=== PATIENT | male | born 1955 | race African-American/Black ===

== ENCOUNTER 2016-08-14 12:19 | Inpatient (IN) | payer OTHER ==
[~2016-08-14] VITALS: Ht 188 cm; Wt 71.2 kg
--- NOTE | ~2016-08-14 | P ---
[facility] [place] [address] PROCEDURE REPORT Name: CHRIS AGRAWAL Room #: 418-P [facility] IN ..#: [id number] Admission: 08/14/16 Attend Phys: Kali Domingo MD Discharge: Date of : 59 Report #: [id number] THIS REPORT FOR: //name// CC: Missael Valderrama DO Kali Domingo MD DATE OF SERVICE: 08/15/2016 This is a patient of Dr. Domingo. 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 He was brought to the operating room now for EGD and removal of the old PEG tube via the mouth using endoscopy. DESCRIPTION OF PROCEDURE: Informed consent for this procedure was obtained from the patient's guardian for EGD, the risks of bleeding, perforation, infection, complications of sedation and the possibility that I could miss something have been explained to the guardian and they have indicated their consent by signing. Ketamine and propofol were slowly titrated before and during this procedure for the patient comfort by the anesthesia service. The Revolutn upper videoscope was introduced through the upper esophageal sphincter and advanced under direct visualization to the distal stomach where the old PEG tube bumper is seen in the antrum and snared the old PEG tube bumper and tried to collapse it with a snare and we might be able to pull it through what appeared to be a very narrow esophagus on the way in at the level of the tracheostomy, but I could never collapse the bumper far enough that I was not concerned about the risk of an esophageal tear or perforation or significant bleeding at the level of the tracheostomy in the esophagus, so the procedure was terminated and the scope was withdrawn. The visualized stomach and esophagus appeared normal. I saw no evidence of any hiatal hernia. Once again the proximal esophagus at the level of the trachea is extraordinarily narrow. Though the scope will go through it fairly easily, I do not think that that bumper from the PEG tube would make it through without a significant risk of injury. Scope was withdrawn. The patient went to the recovery area in stable condition. He tolerated the procedure well. We replace the external PEG tube bumper and a port opening on the old tube. I would recommend we hold the Plavix for now for 4 days and bring him back as an outpatient to pull the PEG through the anterior abdominal wall and replace it with a balloon PEG that can be removed and inserted more easily. [address] [address] PROCEDURE REPORT Name: NGHIACHRIS Room #: 418-P [facility] IN .R.#: [id number] Admission: 08/14/16 Attend Phys: Kali Domingo MD Discharge: Date of : 59 Report #: [id number] Thank you very much once again for allowing me to participate in his care, Dr. Domingo. By: [id number] 0120 Martha Rascon DO /nt
[2016-08-14] MEDS ORDERED: MAPAP160 MG/51 PO (13:17)
[2016-08-14] MEDS ORDERED: ROBAFEN100 MG/5 M PO (13:20)
[2016-08-14] MEDS ORDERED: PLAVIX 75 MG TA75 M1 PER TUBE (13:21)
[2016-08-14] MEDS ORDERED: COZAAR 50 MG TA50 M2 PER TUBE (13:22)
[2016-08-14 15:51] LABS: BASOPHILS 0.5 % (0.0-2.0); EOSINOPHILS 2.6 % (0.0-3.0); HEMATOCRIT 45.5 % (42.0-52.0); HEMOGLOBIN 15.2 gm/dL (14.0-18.0); LYMPHOCYTES 35.6 % (24.0-44.0); MCH 30.3 pg (26.0-34.0); MCHC 33.4 g/dL (28.0-37.0); MCV 90.6 fL (80.0-100.0); MONOCYTES 7.9 % (1.0-8.0); POLYS 53.4 % (36.0-66.0); RBC 5.02 mil/uL (4.50-6.00); RDW 14.8 % (10.5-14.5); WBC 5.6 thou/uL (4.0-11.0)
[2016-08-14 15:53] LABS: MANUAL DIFF NO
[2016-08-14 15:54] LABS: CALCIUM 9.6 mg/dL (8.5-10.1); CREATININE 0.8 mg/dL (0.6-1.3); MAGNESIUM 2.1 mg/dL (1.8-2.4); POTASSIUM 3.8 mmol/L (3.5-5.1)
[2016-08-14 16:13] LABS: ANISOCYTOSIS SLIGHT; PLATELET COUNT 82 thou/uL (150-400)
[2016-08-15 06:08] LABS: ABSOLUTE NEUTROPHILS 4.2 thou/uL (1.4-8.2); BASOPHILS 0.3 % (0.0-2.0); EOSINOPHILS 3.4 % (0.0-3.0); HEMATOCRIT 42.6 % (42.0-52.0); HEMOGLOBIN 14.5 gm/dL (14.0-18.0); LYMPHOCYTES 37.7 % (24.0-44.0); MCH 30.9 pg (26.0-34.0); MCHC 34.1 g/dL (28.0-37.0); MCV 90.6 fL (80.0-100.0); MONOCYTES 7.6 % (1.0-8.0); PLATELET COUNT 78 thou/uL (150-400); RDW 14.7 % (10.5-14.5); WBC 8.2 thou/uL (4.0-11.0)
[2016-08-15 06:20] LABS: MANUAL DIFF NO
[2016-08-15 06:35] LABS: ALBUMIN 3.3 g/dL (3.4-5.0); CALCIUM 9.1 mg/dL (8.5-10.1); CREATININE 0.7 mg/dL (0.6-1.3); TOTAL BILIRUBIN 0.7 mg/dL (<0.1-1.0); TOTAL PROTEIN 7.5 g/dL (6.4-8.2)
== END 2016-08-16 20:00 | DRG 393 ==
LOC: ER 12:19 → EROBS 13:23 → 4E 13:23
PROVIDERS: Internal Medicine; Nurse Practitioner
DX: K94.23 Gastrostomy malfunction (principal); J96.90 Respiratory failure, unspecified, unspecified whether with hypoxia or hypercapnia; J44.9 Chronic obstructive pulmonary disease, unspecified; R13.10 Dysphagia, unspecified; I10 Essential (primary) hypertension; R56.9 Unspecified convulsions; R53.81 Other malaise; I69.320 Aphasia following cerebral infarction; Z87.440 Personal history of urinary (tract) infections; Z93.0 Tracheostomy status; Z28.89 Immunization not carried out for other reason
CPT/HCPCS: 10783; 62110; 62900; 70005

== ENCOUNTER 2016-10-02 00:22 | Inpatient (IN) | payer OTHER ==
[2016-10-02] VITALS (8 sets, daily range): BP systolic 89–142; BP diastolic 58–101
[~2016-10-02] VITALS: Ht 188 cm; Wt 68.6 kg
--- NOTE | ~2016-10-02 | EKG ---
[address] [address] ELECTROCARDIOGRAM REPORT Name: CHRIS AGRAWAL Room #: 446-P ADM IN M.R.#: [id number] Admission: 10/02/16 Attend Phys: Gael Melo MD Discharge: Date of : 59 Report #: [id number] THIS REPORT FOR: //name// [facility] ED Test Date: 2016-10-02 Test Time: 00:57:07 Pat Name: CHRIS AGRAWAL Department: Room: 446 Gender: M Medical Office Technologist: darrell : 1955 Requested By: Ethan Metzger Order Number: [id number] MD: Johnny Solares Measurements Intervals Maceo Rate: 109 P: 72 TN: 152 QRS: 56 QRSD: 74 T: 66 QT: 320 QTc: 431 Interpretive Statements Sinus tachycardia Baseline wander in lead(s) II,aVR Compared to ECG 05/08/2005 12:59:51 No significant changes Electronically Signed On 10-02-2016 8:03:35 CDT by Johnny Solares [email or web address] <ELECTRONICALLY SIGNED> By: Johnny Solares MD, [facility] 10/02/16 0803 0057 0057 Johnny Solares MD, [facility] /EPI
--- NOTE | ~2016-10-02 | H ---
[facility] [place] [address] HISTORY AND PHYSICAL Name: AGRAWALCHRIS Brad Room #: 446-P [facility] IN .R.#: [id number] Admission: 10/02/16 Attend Phys: Constance Nixon Discharge: 10/04/16 Date of : 59 Report #: [id number] THIS REPORT FOR: //name// CC: Constance Valderrama DATE OF SERVICE: 10/02/2016 ATTENDING PHYSICIAN: Gael Melo MD. PRIMARY CARE PHYSICIAN: Missael Valderrama DO. CHIEF COMPLAINT: Left facial droop. HISTORY OF PRESENT ILLNESS: The patient is a 61-year-old -[place] male who is currently at [facility]. Apparently, around 3:00 p.m. yesterday was noted to have left-sided facial droop. He does have a history of stroke, but this was new. They did not immediately send him to the ER because they were waiting on labs to be drawn. Eventually, EMS was called. The patient was reported to be less active during the day. There really is not much other information available except that when EMS arrived, his blood sugar was 460. The patient has a history of a large stroke and is aphasic. He can nod his head yes and no to some questions. He was previously here in August of this year for PEG tube replacement. He does have chronic UTIs, the last of which grew Proteus. In the ER, his NIH score was 9. He was given some fluids and he seemed to perk up. There really was not any facial droop noted on arrival to the ER. He does have a trach and is chronically on oxygen. PAST MEDICAL HISTORY: Hypertension, chronic respiratory failure, hyperlipidemia, COPD, seizures, large stroke with aphasia. PAST SURGICAL HISTORY: PEG tube placement, tracheostomy. ALLERGIES: None. HOME MEDICATIONS: Eliquis 5 mg b.i.d., Plavix 75 mg daily, Lipitor 10 mg at bedtime, losartan 100 mg daily, Tylenol p.r.n., Keppra 1000 mg t.i.d., Vimpat 200 mg b.i.d., potassium 20 mEq daily, Maxzide 37.5/25 one tab daily, guaifenesin 20 mL q. 8 hours p.r.n., Peridex p.r.n., Maalox p.r.n., Colace 100 mg p.o. daily, scopolamine patch 1 patch transdermally daily, NovoLog insulin per sliding scale, Levemir insulin 10 units at bedtime, and multivitamin 1 tab p.o. daily. SOCIAL HISTORY: The patient resides at [facility]. It looks like he is in a rehab facility there. I do not know his living situation prior to rehab. [address] [address] HISTORY AND PHYSICAL Name: AGRAWALCHRIS Room #: 446-P [facility] IN ..#: [id number] Admission: 10/02/16 Attend Phys: Constance Nixon Discharge: 10/04/16 Date of : 59 Report #: [id number] Apparently, he has some alcohol abuse in the past. I do not know if he has been a previous smoker or did any recreational drugs. FAMILY HISTORY: Unobtainable due to altered mental status. PHYSICAL EXAMINATION: GENERAL: The patient is an alert, but nonverbal male in no acute distress. VITAL SIGNS: Temperature is 37.8, max heart rate 109, respirations 19, blood pressure is 136/101, oxygen is 99% on room trach shield. HEENT: PERRLA. Sclerae is nonicteric. Oral mucosa is pink and dry. His lips are chapped. NECK: He does have a trach in place. There is some yellow to singleton sputum noted around his trach. RESPIRATORY: Breath sounds are coarse bilaterally. No wheezing. ABDOMEN: Flat, nontender, nondistended with positive bowel sounds. He does have a PEG tube in place. GENITOURINARY: A Jaime catheter is draining clear yellow urine. VASCULAR: No edema noted. Pedal pulses are 2+. NEUROLOGIC: The patient is alert, but aphasic. He does nod yes and no to a few questions. He is unable to follow any commands. He does have generalized weakness throughout. He does have contractures of bilateral upper and lower extremities. LABORATORY DATA AND DIAGNOSTICS: WBC is 11.9, hemoglobin 16.1, platelets 75. Sodium 150, potassium is 3.8, BUN 44, creatinine 1.2. Glucose 464, lactate 1.1. LFTs showed AST of 34, ALT 68, alkaline phosphatase 91. Troponins negative. ABG: pH is 7.46, pCO2 of 46.9, pO2 of 102.9 and bicarbonate is 32.4 with a lactate of 1.59. UA showed no leukocyte esterase or nitrites, but there were few wbc's and many bacteria and glucose was 2+. CT of the head shows extensive atrophy and chronic microvascular disease with old bilateral white matter infarcts. There is no acute hemorrhage or infarct. There is no mass effect or midline shift. There is mild mucosal thickening in ethmoid sinuses and an old left orbital floor fracture. Chest x-ray shows a tracheostomy in place with mild atelectasis or infiltrate on the left lower lung. There is chronic scarring present in the right lung. There is no growth, pulmonary edema or pneumothorax. ASSESSMENT AND PLAN: 1. Possible pneumonia. This will be considered HCAP. We will go ahead and continue with IV antibiotics. Follow blood cultures and try to obtain a sputum culture. 2. Urinary tract infection. Urine has been sent for culture. Follow labs. 3. Hypernatremia. Likely, due to dehydration. He has been receiving normal saline fluids for fluid resuscitation. Continue with increased water flushes for PEG tube and repeat a sodium level at noon today. [address] [address] HISTORY AND PHYSICAL Name: CHRIS AGRAWAL Room #: 446-[facility].#: [id number] Admission: 10/02/16 Attend Phys: Constance Nixon Discharge: 10/04/16 Date of : 59 Report #: [id number] 4. Diabetes. We will continue Levemir and add sliding scale insulin. 5. Chronic respiratory failure. The patient has a trach in place. Continue with routine trach care and breathing treatments. 6. Seizure disorder. Continue home medications and monitor. 7. Hypertension. Blood pressure is stable, continue home meds and monitor. 8. Cerebrovascular accident. He does have residual aphasia and generalized weakness. Continue with Plavix. He will likely go back to [facility] upon discharge. 9. Diabetes. This is uncontrolled. We will continue home dose of Levemir and add sliding scale insulin. 10. History of stroke. There was concern at one point, he had a left facial droop. At this time, there are no changes from his baseline. CT of the head showed no acute findings. Continue to monitor. 11. Deep vein thrombosis. Place sequential compression devices. We will continue to follow the patient closely throughout the hospitalization and make changes based on clinical status. <ELECTRONICALLY SIGNED> By: JORGE LUIS Goodman 10/07/16 0604 0626 1000 JORGE LUIS Goodman /nt
[~2016-10-02 00:22] MED LIST: COZAAR 50 MG TA50 M2 PER TUBE; MAPAP160 MG/51 PO; PLAVIX 75 MG TA75 M1 PER TUBE; ROBAFEN100 MG/5 M PO
[2016-10-02 00:35] LABS: ABG COMMENT 50% TRACH MASK; ABG SAMPLE TYPE ARTERIAL; BE(vivo) 7.2 mmol/L (-2 to +3); HCO3 32.4 mmol/L (22.0-26.0); LACTATE 1.59 mmol/L (0.5-2.0); O2Hb 97.2 % (92.0-98.0); PCO2 46.9 mmHg (35.0-45.0); PO2 102.9 mmHg (80.0-100.0); STICK SITE L.RADIAL; pH 7.457 (7.360-7.450); sO2 97.9 % (92.0-98.0); tCO2 33.8 mmol/L (24.0-30.0)
[2016-10-02 00:55] LABS: ABSOLUTE NEUTROPHILS 8.5 thou/uL (1.4-8.2); BASOPHILS 0.3 % (0.0-2.0); EOSINOPHILS 0.8 % (0.0-3.0); HEMATOCRIT 48.4 % (42.0-52.0); HEMOGLOBIN 16.1 gm/dL (14.0-18.0); LYMPHOCYTES 18.7 % (24.0-44.0); MCH 29.9 pg (26.0-34.0); MCHC 33.2 g/dL (28.0-37.0); MCV 90.2 fL (80.0-100.0); MONOCYTES 8.9 % (1.0-8.0); POLYS 71.3 % (36.0-66.0); RBC 5.37 mil/uL (4.50-6.00); WBC 11.9 thou/uL (4.0-11.0)
[2016-10-02 01:00] LABS: MANUAL DIFF NO
[2016-10-02 01:06] LABS: CALCIUM 9.6 mg/dL (8.5-10.1); CREATININE 1.2 mg/dL (0.7-1.3); POTASSIUM 3.8 mmol/L (3.5-5.1)
[2016-10-02 01:12] LABS: ALBUMIN 3.3 g/dL (3.4-5.0); MAGNESIUM 2.2 mg/dL (1.8-2.4); TOTAL BILIRUBIN 0.4 mg/dL (<0.1-1.0); TROPONIN-I 0.07 ng/mL (<0.04-0.07)
[2016-10-02 01:17] LABS: URINE BILIRUBIN NEGATIVE (Negative); URINE BLOOD 2+ (Negative); URINE COLOR YELLOW; URINE GLUCOSE-RANDOM* 2+ (Negative); URINE KETONES NEGATIVE (Negative); URINE LEUKOCYTES-REFLEX NEGATIVE (Negative); URINE PROTEIN (DIPSTICK) NEGATIVE (Negative); URINE SPECIFIC GRAVITY 1.015 (1.003-1.035); URINE UROBILINOGEN 0.2 E.U./dl (0.2-1.0)
[2016-10-02 01:40] LABS: SQUAMOUS >10 Many /LPF (0-3)
[2016-10-02 01:41] LABS: URINE RBC 0-2 Rare /HPF (0-2); URINE WBC-REFLEX 6-15 Few /HPF (0-5); WBC CLUMPS Occasional (None Seen)
[2016-10-02 01:42] LABS: CASTS None Seen /LPF (None Seen); CRYSTALS None Seen /LPF (None Seen)
[2016-10-02 02:55] LABS: PLATELET COUNT 75 thou/uL (150-400)
[2016-10-02 02:56] LABS: LARGE PLATELETS RARE
[2016-10-02] MEDS ORDERED: NOVOLOG100 UNIT/1 SUBQ (03:06)
[2016-10-02] MEDS ORDERED: LEVEMIR SUBQ (03:07)
[2016-10-02] MEDS ORDERED: POTASSIUM20 PER TUBE (03:09)
[2016-10-02] MEDS ORDERED: CENTRUM SILVER1 EAC2 PER TUBE (03:09)
[2016-10-02] MEDS ORDERED: TRANSDERM-SCO1 PATC1 TOP (03:11)
[2016-10-02] MEDS ORDERED: COLACE100 MG PER TUBE (03:11)
[2016-10-02] MEDS ORDERED: MAXZIDE-25 MG1 EACH PER TUBE (03:12)
[2016-10-02] MEDS ORDERED: LIPITOR10 MG PER TUBE (03:12)
[2016-10-02] MEDS ORDERED: ELIQUIS5 MG PER TUBE (03:13)
[2016-10-02] MEDS ORDERED: ROBITUSSIN100 MG/53 PO (03:15)
[2016-10-02] MEDS ORDERED: PERIDEX15 ML PO (03:15)
[2016-10-02] MEDS ORDERED: MAALOX ADVANCE355 M1 PER TUBE (03:17)
[2016-10-02] MEDS ORDERED: VIMPAT200 MG PER TUBE (03:18)
[2016-10-02] MEDS ORDERED: KEPPRA 100100 MG/M1 PER TUBE (03:19)
[2016-10-03 04:40] VITALS: BP 118/69
[2016-10-03 07:41] VITALS: BP 107/62
[2016-10-03 11:20] VITALS: BP 110/67
[2016-10-03 11:33] VITALS: BP 110/67
[2016-10-03 18:00] VITALS: BP 107/69
[2016-10-03 19:38] VITALS: BP 118/76
[2016-10-04 04:10] VITALS: BP 116/68
[2016-10-04 04:53] LABS: ALBUMIN 2.5 g/dL (3.4-5.0); CALCIUM 8.2 mg/dL (8.5-10.1); CREATININE 0.8 mg/dL (0.7-1.3); POTASSIUM 3.1 mmol/L (3.5-5.1)
[2016-10-04 08:00] VITALS: BP 108/70
[2016-10-04] MEDS ORDERED: MAXIPIME 1 GM/D51 G1 IV (10:48)
[2016-10-04] MEDS ORDERED: ZOSYN 4.5 GRAM4.5 GM IV (10:56)
[2016-10-04 12:18] VITALS: BP 116/68
== END 2016-10-04 14:35 | DRG 91 ==
LOC: ER 00:22 → 4S 01:56 → EROBS 01:56 → 4S 02:30
PROVIDERS: Emergency Medicine; Hospitalist
DX: G92 Toxic encephalopathy (principal); J69.0 Pneumonitis due to inhalation of food and vomit; N39.0 Urinary tract infection, site not specified; E87.0 Hyperosmolality and hypernatremia; J96.10 Chronic respiratory failure, unspecified whether with hypoxia or hypercapnia; J44.9 Chronic obstructive pulmonary disease, unspecified; G40.909 Epilepsy, unspecified, not intractable, without status epilepticus; F10.10 Alcohol abuse, uncomplicated; I10 Essential (primary) hypertension; R13.10 Dysphagia, unspecified; E78.5 Hyperlipidemia, unspecified; B96.20 Unspecified Escherichia coli [E. coli] as the cause of diseases classified elsewhere; E11.65 Type 2 diabetes mellitus with hyperglycemia; Z79.4 Long term (current) use of insulin; Z93.0 Tracheostomy status; Z87.440 Personal history of urinary (tract) infections; I69.320 Aphasia following cerebral infarction; Z99.81 Dependence on supplemental oxygen; Z79.899 Other long term (current) drug therapy; Z79.01 Long term (current) use of anticoagulants
CPT/HCPCS: 10100

== ENCOUNTER 2016-10-22 22:36 | Inpatient (IN) | payer OTHER ==
[~2016-10-22] VITALS: Ht 175.3 cm; Wt 71.5 kg
--- NOTE | ~2016-10-22 | HC ---
[facility] [place] [address] CONSULTATION Name: CHRIS AGRAWAL Room #: 244-P [facility] IN ..#: [id number] Admission: 10/23/16 Attend Phys: Kwasi Mckeon MD Discharge: Date of : 59 Report #: [id number] THIS REPORT FOR: //name// CC: Missael Newby REASON FOR CONSULTATION: Dislodgement of tracheotomy tube. HISTORY OF PRESENT ILLNESS: The patient is a 61-year-old male resident of [facility] who presented through the Emergency Department last evening with dislodgement of his tracheotomy tube for an unknown period of time. This had healed down to the point that there was essentially no stoma present. The patient had just been seen in the Emergency Department by Dr. Irwin on 09/26, again presenting with dislodgement of the tracheotomy tube. At that point, he had had a #[address] In his note that was reviewed, there was granulation tissue at the trach site and a red rubber catheter was used for probing for patency. He was then able to pass a #4 uncuffed tracheotomy tube and suction and ventilate. Recommendations were made that the #4 would be present for several days and then changed to a #6 later in the week. This apparently was done, but then dislodged again. Since dislodgment, the patient has been breathing on 15 liters O2 with adequate saturation. I have been asked to reevaluate for replacement of the tracheotomy tube. A CT scan was done of the soft tissues of neck and trachea last evening to look for any supraglottic airway obstruction or evidence of granulation or mass in the trachea. This was negative. PAST MEDICAL HISTORY: Significant for history of a CVA. He is aphasic with atoxic encephalopathy, history of UTI, hypertension, COPD, history of previous ethanol abuse, respiratory failure which is chronic, status post tracheotomy. It is unknown how long that has been in place. He is PEG tube dependent from dysphagia. The patient is also followed with hyperglycemia and a recent admission for sepsis. MEDICATIONS: Listed in his MAR. DRUG ALLERGIES: Listed as none. REVIEW OF SYSTEMS: Not possible to obtain. PHYSICAL EXAMINATION: VITAL SIGNS: Show a temperature of 98.3, blood pressure of 132/89, pulse of 80 and O2 sat is 95%. HEENT: He is normocephalic. The patient has very poor oral care. The trachea is in the midline. There essentially is no stoma with only some stenosis of the [facility] [address] [place] [address] CONSULTATION Name: NGHIACHRIS Brad Room #: [facility]#: [id number] Admission: 10/23/16 Attend Phys: Kwasi Mckeon MD Discharge: Date of : 59 Report #: [id number] previous stoma with a slight granuloma polyp. LABORATORY DATA: The patient's CBC shows a white count of 8400, hemoglobin of 14.1 and 104,000 platelets. The patient's coagulation studies show a protime of 11.4 with an INR of 1.1 and PTT of 27.6. Metabolic survey shows normal electrolytes with a slightly elevated BUN of 27. CT of the neck showed no evidence of any supraglottic airway obstruction and no evidence of any tracheal obstruction. Blood gas on admission showed a pH of 7.46, pCO2 of 34.6 and a pO2 of 70.9. ASSESSMENT AND PLAN: 1. Chronic respiratory failure with tracheotomy tube in place. The patient has saturation adequately without the trach in place, but I have been asked to evaluate for replacement in order that he can be transferred back to his long-term care center. 2. PEG tube dependency with chronic dysphagia. 3. History of cerebrovascular accident with aphasia. 4. History of toxic encephalopathy. 5. Coccyx wounds being managed. 6. The patient has been on deep vein thrombosis prophylaxis with Plavix, which has been held since admission. The replacement of tracheotomy tube was discussed with his family by the nursing staff. I have made a recommendation for development of a tracheal stoma to decrease future dislodgement. <ELECTRONICALLY SIGNED> By: Boris Newby MD 10/24/16 1801 1437 0120 Boris Newby MD /nt
--- NOTE | ~2016-10-22 | O ---
[facility] [place] [address] OPERATIVE REPORT Name: CHRIS AGRAWAL Room #: 244-P [facility] IN ..#: [id number] Admission: 10/23/16 Attend Phys: Kwasi Mckeon MD Discharge: Date of : 59 Report #: [id number] THIS REPORT FOR: //name// CC: Missael Newby DATE OF SERVICE: 10/23/2016 PREOPERATIVE DIAGNOSES: 1. Tracheotomy tube displacement. 2. Tracheal stoma stenosis. POSTOPERATIVE DIAGNOSES: 1. Tracheotomy tube displacement. 2. Tracheal stoma stenosis. OPERATION PERFORMED: 1. Tracheoplasty with creation of tracheal fistula. 2. Replacement of tracheostomy with development of skin flaps. INDICATIONS: The patient is a 61-year-old gentleman who was returned twice in a month for a displaced tracheotomy tube. The patient saw Dr. Irwin in September 26 and had a replacement of a #4 Shiley over red rubber catheter and subsequently changed to a #6 Shiley. This has since been dislodged and the patient returned again last night. Examination in the emergency room showed a completely healed stoma and it was obvious that this tracheotomy tube had been out a fair amount of time, the patient was watched overnight and brought to the operating room today after stopping his Plavix for at least 24 hours for reconstruction. Recommendations were made for creation of a tracheal stoma to prevent this from occurring in the future and replacement of tracheotomy tube with skin flaps. DESCRIPTION OF PROCEDURE: The patient was brought to the operating room and placed supine on the operating table. After adequate general anesthesia was achieved via endotracheal intubation, examination was made of the stoma. There was literally a 1 mm stoma present that with positive pressure showed some mucus and blood from the intubation, it was impossible to replace a tube due to the stenosis. The shoulder was placed and neck was extended. The planned incision was marked out as a vertical incision on the skin overlying the trachea and injected with 1% Xylocaine with 1:100,000 epinephrine. The patient was then prepped and draped sterilely. The procedure began with an incision vertically in the midline along the trachea from cricoid to the lower level of the previous tracheotomy scar. Wide undermining was then undertaken under the skin flaps [address] [address] OPERATIVE REPORT Name: CHRIS AGRAWAL Room #: 244-P [facility]#: [id number] Admission: 10/23/16 Attend Phys: Kwasi Mckeon MD Discharge: Date of : 59 Report #: [id number] which were defatted. The subcutaneous fat was then removed for 2 cm around the stoma back down to the strap muscles. Strap muscles were then divided vertically in the midline and dissected down to the trachea. The patient had a stenotic plug of scar and granulation with no patent airway. The stenosis was then removed down to the trachea. Wide undermining was made on the strap muscle so that this could be directly visualized. Tracheoplasty was then undertaken to enlarge the stoma and provide for entrance of a #8 Shiley tracheotomy tube. At this point, the fenestration procedure was begun with tracheoplasty sewing the skin flaps down to the underlying cartilage of the trachea and the sternohyoid muscle. A fenestration was created suturing both sides of the incision with multiple 3-0 Vicryl sutures. Once this fenestration and tracheoplasty was completed with the skin flaps inset, attention was turned to the opening in the trachea. This was suctioned. Hemostasis was assured with bipolar cauterization. In concert with anesthesia, the indwelling endotracheal tube was removed and under direct vision, a #8 cuffed nonfenestrated Shiley was placed into the trachea. The balloon was inflated and the patient connected to the anesthesia circuit and tidal CO2 was confirmed as well as ventilation by auscultation. The area around this was then packed with Surgicel as the patient does have a relatively low platelet count and has been on two anticoagulates. There was minimal bleeding during the procedure. The tracheotomy flange was then sutured to the skin with interrupted 2-0 silk and Velcro trach ties applied. Discussion was given with anesthesia to have available a 6 pack of platelets as well as the possibility of fresh frozen plasma if the patient has any bleeding overnight. The patient will be transferred to the intensive care unit for monitoring with pulmonary/intensive consultation. <ELECTRONICALLY SIGNED> By: Boris Newby MD 10/24/16 1801 1643 1846 Boris Newby MD /nt
[~2016-10-22 22:36] MED LIST changes: +CENTRUM SILVER1 EAC2 PER TUBE; +COLACE100 MG PER TUBE; +ELIQUIS5 MG PER TUBE; +KEPPRA 100100 MG/M1 PER TUBE; +LEVEMIR SUBQ; +LIPITOR10 MG PER TUBE; +MAALOX ADVANCE355 M1 PER TUBE; +MAPAP160 MG/51 PER TUBE; -MAPAP160 MG/51 PO; +MAXIPIME 1 GM/D51 G1 IV; +MAXZIDE-25 MG1 EACH PER TUBE; +NOVOLOG100 UNIT/1 SUBQ; +PERIDEX15 ML PO; +POTASSIUM20 PER TUBE; +ROBITUSSIN100 MG/53 PO; +TRANSDERM-SCO1 PATC1 TOP; +VIMPAT200 MG PER TUBE; +ZOSYN 4.5 GRAM4.5 GM IV
[2016-10-22 23:24] LABS: ABG SAMPLE TYPE ARTERIAL; BE(vivo) 1.3 mmol/L (-2 to +3); HCO3 24.5 mmol/L (22.0-26.0); LACTATE 0.76 mmol/L (0.5-2.0); O2(CT) 18.5 mL/dL (15.0-23.0); O2Hb 93.2 % (92.0-98.0); PCO2 34.6 mmHg (35.0-45.0); PO2 70.9 mmHg (80.0-100.0); pH 7.468 (7.360-7.450); sO2 95.3 % (92.0-98.0); tCO2 25.6 mmol/L (24.0-30.0)
[2016-10-23] VITALS (37 sets, daily range): BP systolic 103–142; BP diastolic 72–92
[2016-10-23 02:05] LABS: ABSOLUTE NEUTROPHILS 4.7 thou/uL (1.4-8.2); BASOPHILS 0.5 % (0.0-2.0); EOSINOPHILS 2.6 % (0.0-3.0); HEMATOCRIT 41.3 % (42.0-52.0); HEMOGLOBIN 14.1 gm/dL (14.0-18.0); MCH 30.2 pg (26.0-34.0); MCHC 34.1 g/dL (28.0-37.0); MCV 88.6 fL (80.0-100.0); PLATELET COUNT 104 thou/uL (150-400); POLYS 55.9 % (36.0-66.0); RBC 4.66 mil/uL (4.50-6.00); RDW 14.8 % (10.5-14.5); WBC 8.4 thou/uL (4.0-11.0)
[2016-10-23 02:06] LABS: MANUAL DIFF NO
[2016-10-23 02:18] LABS: APTT 27.6 Seconds (24.5-32.8); INR 1.1; PROTIME 11.4 Seconds (9.3-11.4)
[2016-10-23 02:44] LABS: CALCIUM 9.6 mg/dL (8.5-10.1); CREATININE 0.7 mg/dL (0.7-1.3); POTASSIUM 3.7 mmol/L (3.5-5.1)
[2016-10-23] MEDS ORDERED: AUGMENTIN 875875 MG (03:36)
[2016-10-23] MEDS ORDERED: DUONEB 2.5-0.5 M3 ML (03:40)
[2016-10-23 18:05] LABS: ABG SAMPLE TYPE ARTERIAL; BE(vivo) -0.6 mmol/L (-2 to +3); O2(CT) 19.5 mL/dL (15.0-23.0); O2Hb 97.9 % (92.0-98.0); PO2 185.3 mmHg (80.0-100.0); pH 7.363 (7.360-7.450); sO2 99.2 % (92.0-98.0); tCO2 26.4 mmol/L (24.0-30.0)
[2016-10-23 18:06] LABS: STICK SITE L.RADIAL; TIDAL VOLUME 500 ml
[2016-10-24] VITALS (49 sets, daily range): BP systolic 93–131; BP diastolic 64–92
[2016-10-24 04:21] LABS: HEMATOCRIT 37.4 % (42.0-52.0); HEMOGLOBIN 12.8 gm/dL (14.0-18.0); MCH 30.3 pg (26.0-34.0); MCHC 34.1 g/dL (28.0-37.0); MCV 88.6 fL (80.0-100.0); RBC 4.22 mil/uL (4.50-6.00); RDW 14.7 % (10.5-14.5)
[2016-10-24 04:42] LABS: CALCIUM 8.5 mg/dL (8.5-10.1); CREATININE 0.8 mg/dL (0.7-1.3); MAGNESIUM 1.7 mg/dL (1.8-2.4)
[2016-10-24 09:53] LABS: ABG SAMPLE TYPE ARTERIAL; BE(vivo) -0.4 mmol/L (-2 to +3); HCO3 24.7 mmol/L (22.0-26.0); LACTATE 1.32 mmol/L (0.5-2.0); O2(CT) 18.2 mL/dL (15.0-23.0); O2Hb 97.7 % (92.0-98.0); PCO2 41.9 mmHg (35.0-45.0); PO2 129.7 mmHg (80.0-100.0); Pressure Support 6 cm H20; STICK SITE R.RADIAL; pH 7.388 (7.360-7.450); sO2 98.6 % (92.0-98.0)
[2016-10-25] VITALS (17 sets, daily range): BP systolic 96–156; BP diastolic 69–120
[2016-10-26 03:06] VITALS: BP 130/84
[2016-10-26 08:12] VITALS: BP 106/70
== END 2016-10-26 18:43 | DRG 12 ==
LOC: ER 22:36 → EROBS 10-23 02:00 → ICU 10-23 02:50 → 2N 10-23 07:38 → ICU 10-23 12:22 → 4W 10-25 16:48
PROVIDERS: Emergency Medicine; Hospitalist; Nurse Practitioner
PROC: 5A1935Z Respiratory Ventilation, Less than 24 Consecutive Hours (ICD-10-PCS; principal; 2016-10-23)
PROC: 0B110Z4 Bypass Trachea to Cutaneous, Open Approach (ICD-10-PCS; principal; 2016-10-23)
PROC: 0B21XFZ Change Tracheostomy Device in Trachea, External Approach (ICD-10-PCS; principal; 2016-10-23)
PROC: 0BU Respiratory System, Supplement (ICD-10-PCS; principal; 2016-10-23)
DX: J95.09 Other tracheostomy complication (principal); J96.10 Chronic respiratory failure, unspecified whether with hypoxia or hypercapnia; I69.359 Hemiplegia and hemiparesis following cerebral infarction affecting unspecified side; I10 Essential (primary) hypertension; J95.03 Malfunction of tracheostomy stoma; E78.5 Hyperlipidemia, unspecified; E11.9 Type 2 diabetes mellitus without complications; J44.9 Chronic obstructive pulmonary disease, unspecified; F10.21 Alcohol dependence, in remission; R13.10 Dysphagia, unspecified; T14.8 Other injury of unspecified body region; X58.XXXA Exposure to other specified factors, initial encounter; I69.320 Aphasia following cerebral infarction; Z79.4 Long term (current) use of insulin; Z87.440 Personal history of urinary (tract) infections; Z79.899 Other long term (current) drug therapy; Y93.89 Activity, other specified; Y92.89 Other specified places as the place of occurrence of the external cause; Y99.8 Other external cause status
CPT/HCPCS: 10047; 10078; 50101; 50386; 50398; 50517; 52190; 56528; 56529; 56639; 57006; 62110; 62900

== ENCOUNTER 2016-11-27 09:22 | Emergency (ER) | payer OTHER ==
[~2016-11-27] VITALS: Ht 180.3 cm; Wt 77.1 kg
[~2016-11-27 09:22] MED LIST changes: +AUGMENTIN 875875 MG; +DUONEB 2.5-0.5 M3 ML; +MYCAMINE100 MG IV; +VANCOMYCIN125 MG/2.1 PER TUBE; +ZOSYN 3.3753.375 GM IV
[2016-11-27] MEDS ORDERED: VANCOMYCIN100 MG/ML NG (09:31)
[2016-11-27 09:44] LABS: ABSOLUTE NEUTROPHILS 5.7 thou/uL (1.4-8.2); BASOPHILS 0.6 % (0.0-2.0); EOSINOPHILS 1.9 % (0.0-3.0); HEMATOCRIT 41.8 % (42.0-52.0); HEMOGLOBIN 14.1 gm/dL (14.0-18.0); LYMPHOCYTES 29.7 % (24.0-44.0); MCH 30.3 pg (26.0-34.0); MCHC 33.7 g/dL (28.0-37.0); MCV 89.8 fL (80.0-100.0); MONOCYTES 11.3 % (1.0-8.0); PLATELET COUNT 109 thou/uL (150-400); POLYS 56.5 % (36.0-66.0); RBC 4.66 mil/uL (4.50-6.00); RDW 15.1 % (10.5-14.5); WBC 10.1 thou/uL (4.0-11.0)
[2016-11-27 09:46] LABS: MANUAL DIFF NO
[2016-11-27 09:55] LABS: CALCIUM 9.7 mg/dL (8.5-10.1); CREATININE 0.9 mg/dL (0.7-1.3); POTASSIUM 3.6 mmol/L (3.5-5.1)
[2016-11-27 09:59] LABS: ALBUMIN 3.2 g/dL (3.4-5.0); DIRECT BILIRUBIN 0.2 mg/dL (<0.1-0.3); TOTAL BILIRUBIN 0.7 mg/dL (<0.1-1.0); TOTAL PROTEIN 8.2 g/dL (6.4-8.2)
[2016-11-27] MEDS ORDERED: ONDANSETRON HCL4 M2 PO (12:48)
== END 2016-11-27 12:49 | disposition home or self-care (01) ==
LOC: ER 09:22
PROVIDERS: Emergency Medicine
DX: R11.2 Nausea with vomiting, unspecified (principal); I10 Essential (primary) hypertension; J44.9 Chronic obstructive pulmonary disease, unspecified; E11.9 Type 2 diabetes mellitus without complications; E78.00 Pure hypercholesterolemia, unspecified; Z86.73 Personal history of transient ischemic attack (TIA), and cerebral infarction without residual deficits

== ENCOUNTER 2017-01-14 14:19 | Emergency (ER) | payer OTHER ==
[~2017-01-14] VITALS: Ht 188 cm; Wt 90.7 kg
[~2017-01-14 14:19] MED LIST changes: +ONDANSETRON HCL4 M2 PO; +VANCOMYCIN100 MG/ML NG
[2017-01-15] MEDS ORDERED: BROVANA15 MCG/2 M INH (22:19)
[2017-01-15] MEDS ORDERED: PEPCID20 MG PO (22:20)
[2017-01-15] MEDS ORDERED: GENTAMICIN SU3 MG/ML OPHTHALMIC (22:22)
[2017-01-15] MEDS ORDERED: ATROPINE 0.01%-10 ML SUBLING (22:27)
[2017-01-15] MEDS ORDERED: GLYCOPYRROLATE 11 MG (22:28)
[2017-01-15] MEDS ORDERED: ONDANSETRON HCL4 M2 PO (22:28)
[2017-01-15] MEDS ORDERED: TYLENOL325 MG PO (22:29)
[2017-01-15] MEDS ORDERED: DUONEB 2.5-0.5 M3 ML INH (22:30)
[2017-01-15] MEDS ORDERED: LEVEMIR FL100 UNIT/2 SUBQ (22:30)
[2017-01-15] MEDS ORDERED: HUMALOG MI100 UNIT/2 SUBQ (22:31)
== END 2017-01-14 17:35 | disposition home or self-care (01) ==
LOC: ER 14:19
DX: Z43.1 Encounter for attention to gastrostomy (principal); I10 Essential (primary) hypertension; J44.9 Chronic obstructive pulmonary disease, unspecified; E11.9 Type 2 diabetes mellitus without complications; E78.00 Pure hypercholesterolemia, unspecified; F10.10 Alcohol abuse, uncomplicated; Z86.73 Personal history of transient ischemic attack (TIA), and cerebral infarction without residual deficits; Z87.09 Personal history of other diseases of the respiratory system; Z87.440 Personal history of urinary (tract) infections; Z79.4 Long term (current) use of insulin

== ENCOUNTER 2017-01-15 22:02 | Emergency (ER) | payer OTHER ==
[~2017-01-15] VITALS: Ht 188 cm; Wt 86.2 kg
[2017-01-15] MEDS ORDERED: BROVANA15 MCG/2 M INH (22:19)
[2017-01-15] MEDS ORDERED: PEPCID20 MG PO (22:20)
[2017-01-15] MEDS ORDERED: GENTAMICIN SU3 MG/ML OPHTHALMIC (22:22)
[2017-01-15] MEDS ORDERED: ATROPINE 0.01%-10 ML SUBLING (22:27)
[2017-01-15] MEDS ORDERED: ONDANSETRON HCL4 M2 PO (22:28)
[2017-01-15] MEDS ORDERED: GLYCOPYRROLATE 11 MG (22:28)
[2017-01-15] MEDS ORDERED: TYLENOL325 MG PO (22:29)
[2017-01-15] MEDS ORDERED: DUONEB 2.5-0.5 M3 ML INH (22:30)
[2017-01-15] MEDS ORDERED: LEVEMIR FL100 UNIT/2 SUBQ (22:30)
[2017-01-15] MEDS ORDERED: HUMALOG MI100 UNIT/2 SUBQ (22:31)
== END 2017-01-16 00:15 ==
LOC: ER 22:02
DX: K94.23 Gastrostomy malfunction (principal); I10 Essential (primary) hypertension; J44.9 Chronic obstructive pulmonary disease, unspecified; E11.9 Type 2 diabetes mellitus without complications; E78.00 Pure hypercholesterolemia, unspecified; Z86.73 Personal history of transient ischemic attack (TIA), and cerebral infarction without residual deficits; Z87.09 Personal history of other diseases of the respiratory system; Z87.440 Personal history of urinary (tract) infections; Z79.4 Long term (current) use of insulin

== ENCOUNTER 2017-01-16 11:59 | Emergency (ER) | payer OTHER ==
[~2017-01-16] VITALS: Ht 175.3 cm; Wt 68.0 kg
[~2017-01-16 11:59] MED LIST changes: +ATROPINE 0.01%-10 ML SUBLING; +BROVANA15 MCG/2 M INH; +DUONEB 2.5-0.5 M3 ML INH; +GENTAMICIN SU3 MG/ML OPHTHALMIC; +GLYCOPYRROLATE 11 MG; +HUMALOG MI100 UNIT/2 SUBQ; +LEVEMIR FL100 UNIT/2 SUBQ; +PEPCID20 MG PO; +TYLENOL325 MG PO
== END 2017-01-16 12:56 ==
LOC: ER 11:59
DX: K94.23 Gastrostomy malfunction (principal); I10 Essential (primary) hypertension; J44.9 Chronic obstructive pulmonary disease, unspecified; E11.9 Type 2 diabetes mellitus without complications; E78.00 Pure hypercholesterolemia, unspecified; Z87.440 Personal history of urinary (tract) infections; Z87.09 Personal history of other diseases of the respiratory system; Z86.73 Personal history of transient ischemic attack (TIA), and cerebral infarction without residual deficits; Z79.4 Long term (current) use of insulin; F10.21 Alcohol dependence, in remission